=== PATIENT | male | born 1990 | race Caucasian/White ===

== ENCOUNTER 2016-07-14 21:53 | Emergency (ER) | payer OTHER ==
[~2016-07-14] VITALS: Ht 175.3 cm; Wt 134.0 kg
[~2016-07-14 21:53] MED LIST: CYCL-319 PO; HYDR-3498 PO; IBUP-1542 PO
[2016-07-14 22:05] VITALS: Ht 175.3 cm; Wt 134.0 kg
--- NOTE | 2016-07-15 00:28 | RADRPT ---
PROCEDURE: XR Ankle. CLINICAL INDICATION: Left ankle pain. TECHNIQUE: Three views of the left ankle. COMPARISON: None available. FINDINGS: There is a small avulsion fracture from the inferior tip of the lateral malleolus. The ankle mortis e appears intact in this nonstressed study. The joint spaces are preserved. There is soft tissue s welling around the ankle. IMPRESSION: 1. Small avulsion fracture from the inferior tip of the lateral malleolus. RPTAT: HTAR .Jorge Rhodes MD, MD Date Time Electronically viewed and signed by .Jorge Rhodes MD, on 07/15/2016 00:28 .R/
--- NOTE | 2016-07-15 00:36 | RADRPT ---
PROCEDURE: Left tibia and fibula. CLINICAL INDICATION: Pain. TECHNIQUE: 4 views including AP and lateral views of the left tibia and fibula were obtained. COMPARISON: None. FINDINGS: There is a small fracture of the distal fibular tip. There is no dislocation. The joint spaces are within normal limits. Bone mineralization is within normal limits. There is no radiopaque foreign body or abnormal calcification. IMPRESSION: Small fracture of the distal fibular tip, age indeterminate. .Jaime Trujillo MD, MD Date Time Electronically viewed and signed by .Jaime Trujillo MD, MD on 07/15/2016 00:36 .T/
--- NOTE | 2016-07-15 00:36 | RADRPT ---
PROCEDURE: Left foot. CLINICAL INDICATION: Pain. TECHNIQUE: Three views including AP, lateral and oblique views of the left foot were obtained. T he images were reviewed on a PACS workstation. COMPARISON: None. FINDINGS: There is no fracture, dislocation or bone destruction. The joint spaces are within normal limits. Bone mineralization is within normal limits. There is no radiopaque foreign body or abnormal calcif ication. IMPRESSION: No evidence of fracture. .Jaime Trujillo MD, Date Time Electronically viewed and signed by .Jaime Trujillo MD, on 07/15/2016 00:35 .T/
[2016-07-15] MEDS ORDERED: IBUP-1542 PO (01:45)
[2016-07-15] MEDS ORDERED: HYDR-906 PO (01:45)
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
== END 2016-07-15 02:14 | disposition home or self-care (01) ==
LOC: FTE 21:53
DX: S82.832A Other fracture of upper and lower end of left fibula, initial encounter for closed fracture (principal); X50.1XXA Overexertion from prolonged static or awkward postures, initial encounter; Y92.9 Unspecified place or not applicable
CPT/HCPCS: 29515; 73590; 73610; 73630; Z7502